=== PATIENT | male | born 1995 | race Caucasian/White ===

== ENCOUNTER 2023-03-04 11:01 | Emergency (ER) | payer OTHER ==
[2023-03-04 11:12] VITALS: BP 120/75; PULSE 81; RESP 18; TEMP 98.2; BMI 26.6
== END 2023-03-04 13:20 | disposition home or self-care (01) ==
LOC: JERFT 11:01 → JER 11:01 → JERFT 13:20
DX: K64.4 Residual hemorrhoidal skin tags (principal)
CPT/HCPCS: 99283-25

== ENCOUNTER 2023-04-05 14:54 | Emergency (ER) | payer OTHER ==
[2023-04-05 15:03] VITALS: BP 127/87; PULSE 89; RESP 20; TEMP 97.9; BMI 25.0
== END 2023-04-05 17:32 | disposition home or self-care (01) ==
LOC: JERFT 14:54
DX: R20.2 Paresthesia of skin (principal)
CPT/HCPCS: 99282-25